=== PATIENT | male | born 1970 | race Caucasian/White ===

== ENCOUNTER → 2016-04-06 | Outpatient (CLI) | payer BC ==
--- NOTE | 2016-04-06 12:58 | DIAGNOSTIC IMAGING REPORT ---
TWO VIEW CHEST CLINICAL HISTORY: Atypical chest pain. FINDINGS: PA and lateral chest radiographs are obtained. No prior studies are available for comparison at the time of dictation. The cardiomediastinal silhouette is unremarkable. The lungs and pleural spaces are clear. There is no pneumothorax. The bony thorax appears intact. There is minimal thoracic scoliosis. IMPRESSION: No active disease in the chest. Electronically signed by: Diego Zhang M.D. 04/06/2016 12:57 PM Dictated Date/Time: 04/06/2016 12:57 PM
--- NOTE | 2016-04-06 13:01 | DIAGNOSTIC IMAGING REPORT ---
SCOLIOSIS 2 VIEW (AP LAT) CLINICAL HISTORY: Chest and back pain. Possible scoliosis. COMPARISON STUDY: No previous studies for comparison. FINDINGS: There is a minor S-shaped thoracic spinal curvature, measuring 8 degrees convex to the left superiorly, and 8 degrees convex to the right inferiorly. IMPRESSION: Minor thoracic spinal curvature. No fractures are visualized. Electronically signed by: Jame Gabriel M.D. 04/06/2016 1:00 PM Dictated Date/Time: 04/06/2016 12:57 PM
== END | disposition home or self-care (01) ==
LOC: C.RAD 12:19
PROVIDERS: ATTEND Family Medicine
DX: R07.9 Chest pain, unspecified (principal)

== ENCOUNTER → 2016-04-20 | Outpatient (CLI) | payer BC ==
[2016-04-20 11:26] LABS: BASO % 0.7 %; BASO ABS # 0.03 K/uL (0-0.2); COMPLETE YES; EOS % 1.9 %; HEMATOCRIT 42.1 % (42-52); IG% 0.2 %; LYMPH % 42.1 %; LYMPH ABS # 1.78 K/uL (1.2-3.4); MEAN CELL VOLUME 88.8 fL (80-100); MEAN CORPUSCULAR HEMOGLOBIN 30.8 pg (25-34); MEAN CORPUSCULAR HGB CONC 34.7 g/dl (32-36); MEAN PLATELET VOLUME 11.3 fL (7.4-10.4); NEUT % 47.1 %; PLATELET COUNT 259 K/uL (130-400); RED BLOOD COUNT 4.74 M/uL (4.7-6.1); WHITE BLOOD COUNT 4.23 K/uL (4.8-10.8)
== END | disposition home or self-care (01) ==
LOC: C.LABBC 09:13
PROVIDERS: ATTEND Orthopaedic Surgery Orthopaedic Surgery of the Spine
DX: R07.89 Other chest pain (principal)

== ENCOUNTER → 2016-04-27 | Outpatient (CLI) | payer BC ==
--- NOTE | 2016-04-27 10:29 | DIAGNOSTIC IMAGING REPORT ---
CHEST CT WITHOUT CONTRAST CT DOSE: 372.70 mGycm HISTORY: CHEST WALL PAIN, SCAPULAR PAIN TECHNIQUE: Multiaxial CT images of the chest were performed without contrast. COMPARISON: None. FINDINGS: The lungs are clear. The mediastinal vascular structures are within normal limits. No mediastinal or hilar lymphadenopathy. No pleural effusion or pneumothorax. Limited views of the upper abdomen demonstrate a normal liver and spleen. IMPRESSION: No acute process. Electronically signed by: Ray Mitchell M.D. 04/27/2016 10:27 AM Dictated Date/Time: 04/27/2016 10:25 AM
== END | disposition home or self-care (01) ==
LOC: C.CTS 10:00
PROVIDERS: ATTEND Orthopaedic Surgery Orthopaedic Surgery of the Spine
DX: R07.89 Other chest pain (principal); M89.8X1 Other specified disorders of bone, shoulder